=== PATIENT | male | born 1975 | race Caucasian/White ===

== ENCOUNTER 2020-09-05 15:57 | Emergency (ER) | payer OTHER ==
[~2020-09-05] VITALS: Ht 182.9 cm; Wt 122.0 kg
[~2020-09-05 15:57] MED LIST: LOTREL 10-20 M1 EACH PO; ZOCOR 20 MG TAB20 M1 PO
[2020-09-05 16:03] VITALS: BP 0/0
== END 2020-09-05 16:03 ==
LOC: M.ERS 15:57
DX: I46.9 Cardiac arrest, cause unspecified (principal); Z20.822 Contact with and (suspected) exposure to COVID-19; I10 Essential (primary) hypertension; E78.00 Pure hypercholesterolemia, unspecified; Z79.899 Other long term (current) drug therapy